=== PATIENT | male | born 1955 | race Caucasian/White ===

== ENCOUNTER 2025-07-09 06:19 | Day surgery (SDC) | payer MEDICARE, BC, SELFPAY | END 2025-07-09 09:41 | disposition home or self-care (01) | LOC: GI 06:19 | PROVIDERS: ATTENDING PHYSICIAN Internal Medicine Gastroenterology | DX: K31.7 Polyp of stomach and duodenum (principal) | CPT/HCPCS: 43239; 88305 ==